=== PATIENT | female | born 1970 | race Caucasian/White ===

== ENCOUNTER 2016-10-31 08:36 | Emergency (ER) | payer BC ==
[2016-10-31 10:59] LABS: RED BLOOD COUNT 4.43 M/UL (4.00-5.10); WHITE BLOOD COUNT 12.5 K/UL (4.5-11.0)
[2016-10-31 11:21] LABS: BUN/CREATININE RATIO 15 (0-10)
== END 2016-10-31 13:45 | disposition home or self-care (01) ==
LOC: ER1 08:36
PROVIDERS: Physician Assistant
DX: R05 Cough (principal); R42 Dizziness and giddiness; T78.40XA Allergy, unspecified, initial encounter; R06.02 Shortness of breath; R09.89 Other specified symptoms and signs involving the circulatory and respiratory systems; J45.909 Unspecified asthma, uncomplicated; Z88.0 Allergy status to penicillin; Z88.5 Allergy status to narcotic agent
CPT/HCPCS: 36415; 71020; 80053; 81001; 82550; 82553; 83874; 84484; 84703; 85025; 85379; 93005; 96360; 99284; J7030; J7050; Q9963

== ENCOUNTER → 2021-08-22 | Outpatient (CLI) | payer BC | LOC: ECHO 13:36 | DX: J45.909 Unspecified asthma, uncomplicated (principal); M17.9 Osteoarthritis of knee, unspecified; I07.1 Rheumatic tricuspid insufficiency; I27.20 Pulmonary hypertension, unspecified | CPT/HCPCS: ECHO; 93306 ==

== ENCOUNTER 2022-03-13 18:48 | Emergency (ER) | payer BC | END 2022-03-13 19:02 | disposition left against medical advice (07) | LOC: ER1 18:48 | DX: Z53.21 Procedure and treatment not carried out due to patient leaving prior to being seen by health care provider (principal) ==

== ENCOUNTER → 2022-04-20 | Outpatient (CLI) | payer BC | LOC: HEART 5 15:47 | DX: J45.40 Moderate persistent asthma, uncomplicated (principal) | CPT/HCPCS: 94060; 95012 ==